=== PATIENT | male | born 1975 | race Caucasian/White ===

== ENCOUNTER 2021-05-15 08:45 | Outpatient (CLI) | payer OTHER, SELFPAY ==
--- NOTE | ~2021-05-15 | MR_ITS ---
EXAMINATION: MR knee LT wo con DATE: 05/15/2021 10:08 INDICATION: Acute left knee pain. TECHNIQUE: Magnetic resonance imaging (MRI) of the left knee was performed without intravenous contra st. Sequences included axial PD-weighted FS FSE, coronal PD-weighted FSE and PD-weighted FS FSE, sagi ttal PD-weighted FSE, and sagittal T2-weighted FS FSE. COMPARISON: None. FINDINGS: Medial compartment: Medial meniscus is normal. There is partial-thickness cartilage loss of femoral condyle, deep at the medial articular surface with mild subchondral edema-like marrow signal intensity. There is shallow p artial-thickness cartilage loss of tibial condyle. Osteophytes are noted. Lateral compartment: There is an undersurface horizontal tear of body and anterior horn of lateral meniscus. There is shal low partial-thickness cartilage loss of tibial condyle and femoral condyle. Osteophytes are noted. Patellofemoral compartment: There is deep partial-thickness cartilage loss of patellar median ridge and lateral facet with mild s ubchondral edema-like signal intensity. There is shallow partial-thickness cartilage loss of patellar medial facet. There is partial-thickness cartilage loss of trochlea, deep at the central trochlea. O steophytes are noted. Ligaments and tendons: The anterior and posterior cruciate ligaments are normal. The medial collateral ligament and lateral collateral ligament complex are intact. There is mild patellar tendinopathy. Fluid: There is a small knee joint effusion. There is a 4 mm loose body in the knee joint posteriorly. IMPRESSION: 1. Moderate chondrosis of medial and patellofemoral compartments and mild chondrosis of lateral ronna rtment. 2. Tear of lateral meniscus. 3. Small knee joint effusion with loose body. Reviewed, dictated and finalized at location A. IMPRESSION: 1. Moderate chondrosis of medial and patellofemoral compartments and mild chond rosis of lateral compartment. 2. Tear of lateral meniscus. 3. Small knee joint effusion with loose body.
== END 2021-05-15 08:46 | disposition home or self-care (01) ==
DX: M23.42 Loose body in knee, left knee (principal); S83.282A Other tear of lateral meniscus, current injury, left knee, initial encounter
CPT/HCPCS: 73721

== ENCOUNTER 2024-04-02 07:43 | Emergency (ER) | payer OTHER, SELFPAY ==
--- NOTE | ~2024-04-02 | XR_ITS ---
XR foot LT min 3V Ordering provider: Basilio Cesar MD History: . DROPPPED BRAKE ROTOR ON TOES TODAY. BLEEDING, PAIN . Comparison: None. FINDINGS: BONES: No definite acute fracture or dislocation. Lucency is seen in the calcaneus with adjacent smal l bone fragment may be due to previous postoperative changes. Clinical correlation advised. JOINT SPACES: Osteoarthritic changes of the first metatarsophalangeal joint. Osteoarthritic changes o f the ankle joint. No tarsal coalition. SOFT TISSUES: Normal. IMPRESSION: No definite acute osseous abnormality left foot. Reviewed, dictated and finalized at location A.
[2024-04-02 08:17] VITALS: BP 141/86; PULSE 66; RESP 17; TEMP 36.4; O2SAT 98
--- NOTE | 2024-04-02 09:19 | ED.GENADULT ---
HPI - General Adult General Chief complaint: Extremity Injury, Lower Stated complaint: L toe pain Time Seen by Provider: 04/02/24 07:45 History of Present Illness HPI narrative: 48-year-old male presenting to the emergency department for evaluation for a left toe injury. Patient was at work when he dropped a brake rotor on his toe. 5 sutures to a 4 cm laceration to toe Related Data Allergies Allergy/AdvReac Type Severity Reaction Status Date / Time No Known Allergies Allergy Unknown Unverified 05/12/21 07:06 Review of Systems Review of Systems: All systems reviewed & are unremarkable except as noted in HPI and below PMFSH Social History Social History (System 05/12/21 @ 07:06 by Trixie Garcia) Smoking status: Never smoker Alcohol intake: never Gender identity (if verbalized by the patient): Male Exam Narrative: APPEARANCE: Well appearing, no pain, no distress, well-nourished. HEAD: normocephalic, atraumatic. EYES: PERRLA/EOMI, conjunctivae clear. NOSE: Normal no drainage EARS:TMS clear with good light reflex. THROAT: Pharynx clear, no exudate. NECK: Supple. No adenopathy, no masses. RESPIRATORY: Airway patent, respirations nonlabored. Clear to auscultation bilaterally, no rales, rhonchi, wheezing. CARDIOVASCULAR: Regular rate and rhythm without murmurs rubs or gallops. ABDOMINAL: Soft, nontender, nondistended, normal bowel sounds MUSCULOSKELETAL: Moves all extremities. Strength/ROM intact, No edema, No calf tenderness. NEURO: Alert. Cranial nerves II through XII intact. Good gait. Good coordination SKIN: Laceration to dorsum of left great toe Course Course Emergency Course: Laceration was repaired Vital Signs Vital signs: Vital Signs Temperature 97.6 F 04/02/24 08:17 Pulse Rate 66 04/02/24 08:17 Respiratory Rate 17 04/02/24 08:17 Blood Pressure 141/86 H 04/02/24 08:17 Pulse Oximetry 98 04/02/24 08:17 Oxygen Delivery Room Air 04/02/24 08:17 Temperature 97.6 F 04/02/24 08:17 Pulse Rate 66 04/02/24 08:17 Respiratory Rate 17 04/02/24 08:17 Blood Pressure 141/86 H 04/02/24 08:17 Pulse Oximetry 98 08/06/24 08:17 Oxygen Delivery Room Air 04/02/24 08:17 Procedures Laceration Laceration 1: Site: lower extremity Side (If applicable): left Size (cm): 4 Description: linear Depth: simple, single layer Local Anesthetic: lidocaine 1% Amount of anesthesia used (mL): 2 Pre-repair: wound explored and irrigated ====== Skin Level ====== Skin layer closed with: nylon Size (cm): 4-0 Number of sutures: 5 ====== Subcutaneous Layer ====== ====== Muscle Layer ====== ====== Tendon Layer ====== Medical Decision Making MDM Narrative Medical decision making narrative: 48-year-old male present to the ED for evaluation great toe injury. X-ray was negative for acute fracture. Patient's tetanus is up-to-date. Laceration was repaired as described procedure down. Vital Signs Vital Signs: Vital Signs Temperature 97.6 F 04/02/24 08:17 Pulse Rate 66 04/02/24 08:17 Respiratory Rate 17 04/02/24 08:17 Blood Pressure 141/86 H 04/02/24 08:17 Pulse Oximetry 98 04/02/24 08:17 Oxygen Delivery Room Air 04/02/24 08:17 Temperature 97.6 F 04/02/24 08:17 Pulse Rate 66 04/02/24 08:17 Respiratory Rate 17 04/02/24 08:17 Blood Pressure 141/86 H 04/02/24 08:17 Pulse Oximetry 98 04/02/24 08:17 Oxygen Delivery Room Air 04/02/24 08:17 Discharge Plan Discharge Clinical Impression: Laceration of toe Patient Disposition: Home, Self-Care Condition: Stable Instructions: Antibiotic Form, Laceration (ED) Additional Instructions: Antibiotic as directed until completed. Sutures need to be removed in 7-10 days. Have close follow-up with your primary care physician. If you have any worsening symptoms and please call or return
== END 2024-04-02 11:13 | disposition home or self-care (01) ==
PROVIDERS: Emergency Provider Emergency Medicine; PCP Nurse Practitioner
DX: S91.112A Laceration without foreign body of left great toe without damage to nail, initial encounter (principal); W20.8XXA Other cause of strike by thrown, projected or falling object, initial encounter
CPT/HCPCS: 12002; 73630; 99283